=== PATIENT | male | born 1990 | race Caucasian/White ===

== ENCOUNTER 2017-04-24 21:44 | Emergency (ER) | payer MEDICARE, BC | END 2017-04-24 22:50 | disposition left against medical advice (07) | LOC: ER 21:44 | DX: Z53.9 Procedure and treatment not carried out, unspecified reason (principal); K08.89 Other specified disorders of teeth and supporting structures ==

== ENCOUNTER 2017-04-28 01:40 | Emergency (ER) | payer OTHER, MEDICARE, BC ==
--- NOTE | 2017-04-28 03:16 | ER Document Report ---
HPI - HPI Patient complains to provider of: Toothache Onset: Last week Onset/Duration: Gradual Quality of pain: Achy Pain Level: 4 Context: 26-year-old male complaining of toothache lower left third molar that is partially decayed. No facial swelling.. No fever Associated Symptoms: None Exacerbated by: Denies Relieved by: Denies Similar symptoms previously: Yes Recently seen / treated by doctor: No - ROS ROS below otherwise negative: Yes Systems Reviewed and Negative: Yes All other systems reviewed and negative - CARDIOVASCULAR Cardiovascular: DENIES: Chest pain - DERM Skin Color: Normal, [place] Past Medical History - General Information source: Patient - Social History Smoking Status: Current Every Day Smoker Chew tobacco use (# tins/day): No Frequency of alcohol use: None Drug Abuse: None Lives with: Family Family History: Reviewed & Not Pertinent Patient has suicidal ideation: No Patient has homicidal ideation: No Renal/ Medical History: Denies: Hx Peritoneal Dialysis Psychiatric Medical History: Reports: Hx Bipolar Disorder, Hx Schizophrenia - paranoid Past Surgical History: Reports: Hx Orthopedic Surgery - left hand, right hand with hardware - Immunizations Hx Diphtheria, Pertussis, Tetanus Vaccination: Yes Vertical Provider Document - CONSTITUTIONAL Agree With Documented VS: Yes Exam Limitations: No Limitations - INFECTION CONTROL TRAVEL OUTSIDE OF THE [place] IN LAST 30 DAYS: No - HEENT HEENT: Normocephalic Notes: decayed 3rd left lower molar, no abscess, gingivitis - NECK Neck: Supple - RESPIRATORY O2 Sat by Pulse Oximetry: 99 - MUSCULOSKELETAL/EXTREMETIES Musculoskeletal/Extremeties: MAEW, FROM - NEURO Level of Consciousness: Awake, Alert, Appropriate Motor/Sensory: No Motor Deficit, No Sensory Deficit - DERM Integumentary: Warm, Dry, No Rash Course - Vital Signs Vital signs: Temp Pulse Resp BP Pulse Ox 97.6 F 84 16 136/77 H 99 04/28/17 01:44 04/28/17 01:44 04/28/17 01:44 04/28/17 01:44 04/28/17 01:44 Discharge - Discharge Clinical Impression: Dental pain and decay lt lower 3rd molar Condition: Good Disposition: HOME, SELF-CARE Instructions: Clindamycin ([facility]), Toothache ([facility]), Dentist, Ultram ([facility]), Acetaminophen Additional Instructions: see dentist as soon as possible to er if worse Prescriptions: Clindamycin HCl [Cleocin 150 mg Capsule] 300 mg PO TID #42 capsule Tramadol HCl [Ultram 50 mg Tablet] 50 mg PO ASDIR PRN #20 tablet PRN Reason:
[2017-04-28] MEDS ORDERED: CLINDAMYCIN HCL 150 MG CAPSULE PO ONE (03:21)
[2017-04-28] MEDS ORDERED: ACETAMINOPHEN 325 MG TABLET PO ONE (03:22)
[2017-04-28] MEDS ORDERED: TRAMADOL HCL 50 MG TABLET PO ONE (03:22)
[2017-04-28 04:48] VITALS: BP 130/68
== END 2017-04-28 03:40 | disposition home or self-care (01) ==
LOC: ER 01:40
DX: K02.9 Dental caries, unspecified (principal); K05.10 Chronic gingivitis, plaque induced; K08.89 Other specified disorders of teeth and supporting structures; F17.200 Nicotine dependence, unspecified, uncomplicated
CPT/HCPCS: 99282; A9270 ×3

== ENCOUNTER 2018-02-10 02:00 | Emergency (ER) | payer BC, MEDICARE, OTHER ==
[2018-02-10 02:17] VITALS: BP 147/92
--- NOTE | 2018-02-10 02:35 | RADIOLOGY REPORT (SQ) ---
EXAM DESCRIPTION: SHOULDER RIGHT 2 OR MORE VIEWS CLINICAL HISTORY: Pain s/p injury COMPARISON: 03/18/2015 FINDINGS: 3 views of the right shoulder. The glenohumeral joint is not dislocated. There is separation of the acromioclavicular joint with superior displacement of the clavicular head relative to the acromion. However, this finding is unchanged relative to the comparison study. No fracture of the right-sided ribs. No right-sided pneumothorax. IMPRESSION: 1. No acute fracture or dislocation. 2. 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
--- NOTE | 2018-02-10 02:40 | ER Document Report ---
ED General - General Chief Complaint: R shoulder pain/ injury Stated Complaint: RT SHOULDER PAIN Time Seen by Provider: 02/10/18 02:27 Notes: She is a 27-year-old male who fell down walking his dog. Land to his right shoulder. Please pain his right shoulder feels like a popping sensation when he moves it. He denies any other injuries. He denies any neck pain. No head pain. No pain into his arm or wrist. No weakness or numbness into his right upper extremity. He does have a previous history of an AC separation in the right shoulder. TRAVEL OUTSIDE OF THE [place] IN LAST 30 DAYS: No - Related Data Allergies/Adverse Reactions: cephalexin [Cephalexin] Allergy (Intermediate, Verified 09/28/16 15:56) double vision ibuprofen [Ibuprofen] Adverse Reaction (Intermediate, Verified 09/28/16 15:56) stomach ulcers Past Medical History - Social History Smoking Status: Unknown if Ever Smoked Frequency of alcohol use: None Drug Abuse: None Family History: Reviewed & Not Pertinent Renal/ Medical History: Denies: Hx Peritoneal Dialysis Psychiatric Medical History: Reports: Hx Bipolar Disorder, Hx Schizophrenia - paranoid Past Surgical History: Reports: Hx Orthopedic Surgery - left hand, right hand with hardware - Immunizations Hx Diphtheria, Pertussis, Tetanus Vaccination: Yes Review of Systems - Review of Systems Notes: My Normal Review Basic REVIEW OF SYSTEMS: CONSTITUTIONAL : Denies fever, chills, or sweats. Denies recent illness. MUSCULOSKELETAL: Right shoulder pain NEUROLOGICAL: Denies sensory or motor loss. ALL OTHER SYSTEMS REVIEWED AND NEGATIVE. Physical Exam - Vital signs Vitals: Temp Pulse Resp BP Pulse Ox 98.2 F 107 H 16 147/92 H 98 02/10/18 02:13 02/10/18 02:13 02/10/18 02:13 02/10/18 02:13 02/10/18 02:13 - Notes Notes: General Appearance: Well nourished, alert, cooperative, no acute distress, no obvious discomfort. Vitals: reviewed, See vital signs table. Head: no swelling or tenderness to the head Eyes: PERRL, EOMI, Conjuctiva clear Mouth: No decreasd moisture Neck: Supple, no neck tenderness Extremities: strength 5/5 in all extremities, good pulses in all extremities, patient has a full range of motion of the right shoulder but does have some pain in doing so. He does have deformity due to his chronic AC separation. He has some pain with palpation over the lateral aspect of the humeral head. No obvious new deformity. Skin: warm, dry, appropriate color, no rash Neuro: speech clear, oriented x 3, normal affect, responds appropriately to questions. Course - Re-evaluation Re-evalutation: 02/10/18 02:46 Patient's x-ray does not show any new acute findings. No evidence of fracture. He has an AC separation that is very similar comparison to the one he had in 2015. Informed patient that he could have a strain right shoulder possible rotator cuff tear. I will give him a sling to wear. Encouraged him follow-up with orthopedist for reevaluation. I encouraged her return to ER if he has any worsening pain or if he has further concerns. Patient agrees with plan will be discharged home. Dictation of this chart was performed using voice recognition software; therefore, there may be some unintended grammatical errors. - Vital Signs Vital signs: Temp Pulse Resp BP Pulse Ox 98.2 F 107 H 16 147/92 H 98 02/10/18 02:13 02/10/18 02:13 02/10/18 02:13 02/10/18 02:13 02/10/18 02:13 Discharge - Discharge Clinical Impression: Right shoulder strain Qualifiers: Encounter type: initial encounter Qualified Code(s): S46.911A - Strain of unspecified muscle, fascia and tendon at shoulder and upper arm level, right arm , initial encounter AC separation Qualifiers: Encounter type: subsequent encounter Laterality: right Qualified Code(s): S43.101D - Unspecified dislocation of right acromioclavicular joint, subsequent encounter Condition: Good Disposition: HOME, SELF-CARE Instructions: Oral Narcotic Medication ([facility]) Additional Instructions: Please wear the sling for comfort and support. please follow up with the orthopedist, Dr. rabago, for reevaluation and further treatment. Please put your shoulder through range of motion several times a day to help prevent a frozen shoulder. Return to the ER if you have worsening pain or feel unwell. Referrals: DEYSI RAMIREZ MD [ACTIVE STAFF] - Follow up in 3-5 days
[2018-02-10] MEDS ORDERED: HYDROCODONE/ACETAMINOPHEN 5-325 MG (6 TAB/ER DISP) PO PRN (03:03)
== END 2018-02-10 03:05 | disposition home or self-care (01) ==
LOC: ER 02:00
DX: S46.911A Strain of unspecified muscle, fascia and tendon at shoulder and upper arm level, right arm, initial encounter (principal); S43.101A Unspecified dislocation of right acromioclavicular joint, initial encounter; W18.30XA Fall on same level, unspecified, initial encounter; Y93.K1 Activity, walking an animal; Z88.6 Allergy status to analgesic agent
CPT/HCPCS: 99283

== ENCOUNTER 2018-02-15 00:03 | Emergency (ER) | payer SELFPAY ==
[2018-02-15] MEDS ORDERED: LORAZEPAM INJ 2 MG/1 ML VIAL IM ONE (01:06)
[2018-02-15] MEDS ORDERED: HALOPERIDOL LACTATE INJ 5 MG/1 ML VIAL IM ONE (01:06)
[2018-02-15] MEDS ORDERED: DIPHENHYDRAMINE HCL 50 MG/ML VIAL IM ONE (01:11)
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
[2018-02-15 01:47] LABS: ABSOLUTE LYMPHOCYTES (AUTO) 2.1 10^3/uL (0.5-4.7); ABSOLUTE MONOCYTES (AUTO) 0.9 10^3/uL (0.1-1.4); ABSOLUTE NEUT (AUTO) 5.1 10^3/uL (1.7-8.2); BASOPHILS % (AUTO) 0.1 % (0-2); HEMOGLOBIN 15.9 g/dL (13.5-17.0); LYMPHOCYTES % (AUTO) 26.1 % (13-45); MEAN CORPUSCULAR HEMOGLOBIN 30.4 pg (27.0-33.4); MEAN CORPUSCULAR HGB CONC 34.5 g/dL (32.0-36.0); MEAN CORPUSCULAR VOLUME 88 fl (80-97); MONOCYTES % (AUTO) 10.6 % (3-13); PLATELET COUNT 224 10^3/uL (150-450); RED BLOOD COUNT 5.22 10^6/uL (4.35-5.55); RED CELL DISTRIBUTION WIDTH 13.4 % (11.5-14.0); SEGMENTED NEUTROPHILS % (AUTO) 63.2 % (42-78); TOTAL CELLS COUNTED % (AUTO) 100 %
[2018-02-15 02:20] LABS: ALANINE AMINOTRANSFERASE 42 U/L (21-72); ALBUMIN 4.8 g/dL (3.5-5.0); ALKALINE PHOSPHATASE 62 U/L (38-126); ANION GAP 12 (5-19); ASPARTATE AMINO TRANSFERASE 27 U/L (17-59); BILIRUBIN,DIRECT 0.4 mg/dL (0.0-0.4); BILIRUBIN,TOTAL 0.7 mg/dL (0.2-1.3); BLOOD UREA NITROGEN 13 mg/dL (7-20); CALCIUM 10.4 mg/dL (8.4-10.2); CARBON DIOXIDE 25 mmol/L (22-30); CHLORIDE 105 mmol/L (98-107); GLUCOSE 97 mg/dL (75-110); POTASSIUM 3.7 mmol/L (3.6-5.0); SODIUM 141.8 mmol/L (137-145); TOTAL PROTEIN 7.8 g/dL (6.3-8.2)
[2018-02-15 02:31] LABS: ACETAMINOPHEN < 10 ug/mL (10-30); ALCOHOL < 10 mg/dL (NONE DETECTED); SALICYLATE < 1.0 mg/dL (2.0-20.0)
--- NOTE | 2018-02-15 07:45 | EKG REPORT ---
SEVERITY:- NORMAL ECG - SINUS RHYTHM : Confirmed by: Ney Thompson MD 15-Feb-2018 07:44:38
[2018-02-15 08:27] LABS: APPEARANCE,URINE CLEAR; BILIRUBIN,URINE NEGATIVE (NEGATIVE); COLOR,URINE YELLOW; GLUCOSE, URINE NEGATIVE (NEGATIVE); KETONES,URINE TRACE mg/dL (NEGATIVE); LEUKOCYTE ESTERASE,URINE NEGATIVE (NEGATIVE); NITRITE,URINE NEGATIVE (NEGATIVE); PROTEIN,URINE NEGATIVE (NEGATIVE); URINE SPECIFIC GRAVITY 1.017; UROBILINOGEN,URINE NEGATIVE mg/dL (<2.0)
[2018-02-15 08:39] LABS: URINE BARBITURATES SCREEN NEGATIVE; URINE BENZODIAZEPINES SCREEN NEGATIVE; URINE COCAINE SCREEN NEGATIVE; URINE MARIJUANA (THC) SCREEN UNCONFIRMED POSITIVE; URINE METHADONE SCREEN NEGATIVE; URINE PHENCYCLIDINE SCREEN NEGATIVE
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
[2018-02-15 12:37] VITALS: BP 130/70
== END 2018-02-15 12:37 | disposition home or self-care (01) ==
LOC: ER 00:03
DX: F12.10 Cannabis abuse, uncomplicated (principal); F20.0 Paranoid schizophrenia; R45.850 Homicidal ideations; R45.1 Restlessness and agitation; R45.4 Irritability and anger; Z60.9 Problem related to social environment, unspecified; Z88.1 Allergy status to other antibiotic agents
CPT/HCPCS: 93005; 99285; 96372; 36415; 80307 ×4; 85025; 80053; 81001; 93010; J1200; J1630; J2060

== ENCOUNTER 2018-03-08 09:57 | Emergency (ER) | payer SELFPAY ==
--- NOTE | 2018-03-08 10:46 | RADIOLOGY REPORT (SQ) ---
EXAM DESCRIPTION: CHEST 2 VIEWS COMPLETED DATE/TIME: 03/08/2018 10:21 am REASON FOR STUDY: cough COMPARISON: Chest film 08/08/2013 EXAM PARAMETERS: NUMBER OF VIEWS: two views TECHNIQUE: Digital Frontal and Lateral radiographic views of the chest acquired. RADIATION DOSE: NA LIMITATIONS: none FINDINGS: LUNGS AND PLEURA: No opacities, masses or pneumothorax. No pleural effusion. MEDIASTINUM AND HILAR STRUCTURES: No masses or contour abnormalities. HEART AND VASCULAR STRUCTURES: Heart normal size. No evidence for failure. BONES: No acute findings. HARDWARE: None in the chest. OTHER: No other significant finding. IMPRESSION: NO ACUTE RADIOGRAPHIC FINDING IN THE CHEST. TECHNICAL DOCUMENTATION: JOB ID: [id number] [employer]- All Rights Reserved Reading location - IP/workstation name: [email or web address]
--- NOTE | 2018-03-08 11:10 | ER Document Report ---
ED Respiratory Problem - General Chief Complaint: Cough Stated Complaint: COUGH Time Seen by Provider: 03/08/18 10:26 Mode of Arrival: Ambulatory Information source: Patient Notes: 27-year-old male presents to ED for complaint of chest pain nonproductive cough. He does have congestion but no fevers. His pain is to the right and to the sternum. He denies any shortness of breath nausea or vomiting or any other symptoms. Patient is on Depakote and Cogentin for his psych history. TRAVEL OUTSIDE OF THE [place] IN LAST 30 DAYS: No - HPI Patient complains to provider of: Cough Onset: Other - 4 days Duration: Continuous Initiating Event: URI Quality of pain: Achy, Pressure Severity: Moderate Pain Level: 3 Context: Smoker Short of Breath: Mild Chest pain/discomfort: Tightness Cough: Nonproductive Sputum amount: None Associated symptoms: Chest pain/discomfort, Congestion, Cough, PND, Runny nose, Sinus pain/pressure. denies: Fever Similar symptoms previously: Yes Recently seen / treated by doctor: No - Related Data Allergies/Adverse Reactions: cephalexin [Cephalexin] Allergy (Intermediate, Verified 09/28/16 15:56) double vision ibuprofen [Ibuprofen] Adverse Reaction (Intermediate, Verified 09/28/16 15:56) stomach ulcers Past Medical History - General Information source: Patient - Social History Smoking Status: Current Every Day Smoker Cigarette use (# per day): Yes - Half pack per day Chew tobacco use (# tins/day): No Smoking Education Provided: Yes - 4 minutes Frequency of alcohol use: None Drug Abuse: None Occupation: House arrest Lives with: Family Family History: Reviewed & Not Pertinent Patient has suicidal ideation: No Patient has homicidal ideation: No - Past Medical History Cardiac Medical History: Reports: Hx Heart Murmur Pulmonary Medical History: Reports: None EENT Medical History: Reports: None Neurological Medical History: Reports: None Endocrine Medical History: Reports: None Renal/ Medical History: Reports: None Malignancy Medical History: Reports None GI Medical History: Reports: None Musculoskeltal Medical History: Reports Hx Musculoskeletal Deformity, Reports Hx Musculoskeletal Trauma Skin Medical History: Reports None Psychiatric Medical History: Reports: Hx Bipolar Disorder, Hx Schizophrenia - paranoid Traumatic Medical History: Reports: None Infectious Medical History: Reports: None Past Surgical History: Reports: Hx Orthopedic Surgery - left hand, right hand with hardware - Immunizations Hx Diphtheria, Pertussis, Tetanus Vaccination: Yes Review of Systems - Review of Systems Constitutional: Recent illness EENT: Nose congestion, Nose discharge, Sinus pressure, Sinus discharge Cardiovascular: Chest pain Respiratory: Cough Gastrointestinal: No symptoms reported Genitourinary: No symptoms reported Male Genitourinary: No symptoms reported Musculoskeletal: No symptoms reported Skin: No symptoms reported Hematologic/Lymphatic: No symptoms reported Neurological/Psychological: No symptoms reported -: Yes All other systems reviewed and negative Physical Exam - Vital signs Vitals: Temp Pulse Resp BP Pulse Ox 97.9 F 72 14 146/88 H 99 03/08/18 10:02 03/08/18 10:02 03/08/18 10:02 03/08/18 10:02 03/08/18 10:02 Interpretation: Normal - General General appearance: Appears well, Alert - HEENT Head: Normocephalic, Atraumatic Eyes: Normal Pupils: PERRL Sinus: Normal Nasal: Purulent discharge, Swelling Mouth/Lips: Normal Mucous membranes: Normal Pharynx: Post nasal drainage Neck: Normal - Respiratory Respiratory status: No respiratory distress Chest status: Tender, Pain with cough Breath sounds: Nonproductive cough Chest palpation: Normal - Cardiovascular Rhythm: Regular Heart sounds: Normal auscultation Murmur: No - Abdominal Inspection: Normal Distension: No distension Bowel sounds: Normal Tenderness: Nontender Organomegaly: No organomegaly - Back Back: Normal, Nontender - Extremities General upper extremity: Normal inspection, Nontender, Normal color, Normal ROM , Normal temperature General lower extremity: Normal inspection, Nontender, Normal color, Normal ROM , Normal temperature, Normal weight bearing. No: Beverly's sign - Neurological Neuro grossly intact: Yes Cognition: Normal Orientation: AAOx4 [place] Coma Scale Eye Opening: Spontaneous Mami Coma Scale Verbal: Oriented Mami Coma Scale Motor: Obeys Commands [place] Coma Scale Total: 15 Speech: Normal Motor strength normal: LUE, RUE, LLE, RLE Sensory: Normal - Psychological Associated symptoms: Normal affect, Normal mood - Skin Skin Temperature: Warm Skin Moisture: Dry Skin Color: Normal Course - Re-evaluation Re-evalutation: 03/08/18 21:49 After performing a Medical Screening Examination, I estimate there is LOW risk for ACUTE CORONARY SYNDROME, RESPIRATORY FAILURE, SEPSIS OR MENINGITIS, thus I consider the discharge disposition reasonable. I have reevaluated this patient multiple times and no significant life threatening changes are noted. The patient and I have discussed the diagnosis and risks, and we agree with discharging home with close follow-up. We also discussed returning to the Emergency Department immediately if new or worsening symptoms occur. We have discussed the symptoms which are most concerning (e.g., changing or worsening pain, trouble swallowing or breathing, neck stiffness, fever) that necessitate immediate return. - Vital Signs Vital signs: Temp Pulse Resp BP Pulse Ox 98.2 F 68 16 119/90 H 100 03/08/18 11:25 03/08/18 11:25 03/08/18 11:25 03/08/18 11:25 03/08/18 11:25 - Diagnostic Test Radiology reviewed: Image reviewed, Reports reviewed Discharge - Discharge Clinical Impression: Discomfort of chest wall URI (upper respiratory infection) Qualifiers: URI type: unspecified URI Qualified Code(s): J06.9 - Acute upper respiratory infection, unspecified HTN (hypertension) Qualifiers: Hypertension type: essential hypertension Qualified Code(s): I10 - Essential ( primary) hypertension Condition: Stable Disposition: HOME, SELF-CARE Instructions: Family Physicians / Practices Additional Instructions: UPPER RESPIRATORY ILLNESS: You have a viral infection of the respiratory passages -- a "cold." This common infection causes nasal congestion, drainage, and often sore throat and cough. It is highly contagious. The disease usually lasts about 10 to 14 days. There is no "cure" for the viral infection -- it must run its course. If there is a complication, such as bacterial infection in the nose, sinuses, middle ear, or bronchial tubes, antibiotics may be required. The antibiotics won't affect the virus. Drink plenty of fluids. A humidifier may help. An expectorant medication or decongestant may make you more comfortable. Use acetaminophen or ibuprofen for fever or aches. See the doctor if fever persists over two days, if there is any significant worsening of your symptoms, or if you simply fail to improve as expected. COUGH-SUPPRESSANT & EXPECTORANT MEDICATION: You are to use a cough medication as needed for relief of symptoms. This medicine is a combination of an expectorant (to make the mucous thinner and more easily "coughed up") and a cough suppressant (to reduce the frequency of coughing). The cough-suppressant medicine is related to narcotics. You may experience mild nausea and sleepiness. Some patients who are very sensitive to narcotics may have stomach pain from this medicine. Taking the medicine with food reduces these side effects. Do not drive or work with machinery until you know how this medicine affects you. The expectorant should have no side effects. Iodine-containing expectorants (such as organidin) should not be taken by persons with active thyroid disease unless approved by your doctor. Call the doctor if you develop shortness of breath, hives, rash, itching, lightheadedness, or severe nausea and vomiting. USE OF ACETAMINOPHEN (Tylenol): Acetaminophen may be taken for pain relief or fever control. It's much safer than aspirin, offering a wider range of "safe" dosages. It is safe during . Some brand names are Tylenol, Panadol, Datril, Anacin 3, Tempra, and Liquiprin. Acetaminophen can be repeated every four hours. The following are maximum recommended dosages: >89 pounds or adults 650 mg to 900 mg Acetaminophen can be repeated every four hours. Maximum dose not to exceed 4000 mg a day. SMOKING: If you smoke, you should stop smoking. The tar and chemicals in cigarette smoke are harmful. Smoking has been shown to cause: emphysema chronic bronchitis lung cancer mouth and throat cancer stomach and pancreas cancer premature aging defects In addition, smoking increases ear and lung infections in children of smokers. You will treated with Claritin 10 mg, Mucinex 600 mg, and Tylenol 650 mg for your cough and congestion. He can also use Flonase which is [id number] and salt and soda solution gargles. 1 quart of water 1 tablespoon of salt 1 teaspoon of baking soda Mixed 3 ingredients together and boil for 1 minute Placed in a covered quart jar Use 1/2 ounce of cold solution to gargle 3 times a day FOLLOW-UP CARE: If you have been referred to a physician for follow-up care, call the physician s office for an appointment as you were instructed or within the next two days. If you experience worsening or a significant change in your symptoms, notify the physician immediately or return to the Emergency Department at any time for re-evaluation. Forms: Elevated Blood Pressure
[2018-03-08] MEDS ORDERED: GUAIFENESIN 600 MG TABLET.SA PO ONE (11:11)
[2018-03-08] MEDS ORDERED: ACETAMINOPHEN 325 MG TABLET PO ONE (11:11)
[2018-03-08] MEDS ORDERED: LORATADINE 10 MG TABLET PO ONE (11:11)
[2018-03-08 11:28] VITALS: BP 119/90
--- NOTE | 2018-03-08 21:43 | EKG REPORT ---
SEVERITY:- BORDERLINE ECG - SINUS RHYTHM BORDERLINE RIGHT AXIS DEVIATION BORDERLINE Q WAVES IN INFERIOR LEADS INFERIOR Q WAVES, PROBABLY NORMAL VARIATION : Confirmed by: Raymon Viveros 08-Mar-2018 21:43:01
== END 2018-03-08 11:28 | disposition home or self-care (01) ==
LOC: ER 09:57
DX: J06.9 Acute upper respiratory infection, unspecified (principal); R07.89 Other chest pain; I10 Essential (primary) hypertension; R05 Cough; R09.81 Nasal congestion; R09.82 Postnasal drip; F17.210 Nicotine dependence, cigarettes, uncomplicated; Z79.899 Other long term (current) drug therapy
CPT/HCPCS: 71046; 93005; 93010; 99284; 99406

== ENCOUNTER 2018-03-14 19:16 | Emergency (ER) | payer SELFPAY ==
--- NOTE | 2018-03-14 19:53 | ER Document Report ---
ED Medical Screen (RME) - General Chief Complaint: Psych Problem Stated Complaint: PSYCH ISSUES Time Seen by Provider: 03/14/18 19:51 Notes: pt states he is having trouble with homicidal ideation and "hearing voices". TRAVEL OUTSIDE OF THE [place] IN LAST 30 DAYS: No - Related Data Allergies/Adverse Reactions: cephalexin [Cephalexin] Allergy (Intermediate, Verified 09/28/16 15:56) double vision ibuprofen [Ibuprofen] Adverse Reaction (Intermediate, Verified 09/28/16 15:56) stomach ulcers Past Medical History - Social History Chew tobacco use (# tins/day): No Frequency of alcohol use: None Drug Abuse: None - Past Medical History Cardiac Medical History: Reports: Hx Heart Murmur Renal/ Medical History: Denies: Hx Peritoneal Dialysis Musculoskeltal Medical History: Reports Hx Musculoskeletal Deformity, Reports Hx Musculoskeletal Trauma Psychiatric Medical History: Reports: Hx Bipolar Disorder, Hx Schizophrenia - paranoid Past Surgical History: Reports: Hx Orthopedic Surgery - left hand, right hand with hardware - Immunizations Hx Diphtheria, Pertussis, Tetanus Vaccination: Yes Physical Exam - Vital signs Vitals: Temp Pulse Resp BP Pulse Ox 97.8 F 66 18 141/88 H 98 03/14/18 19:25 03/14/18 19:25 03/14/18 19:25 03/14/18 19:25 03/14/18 19:25 Course - Vital Signs Vital signs: Temp Pulse Resp BP Pulse Ox 97.8 F 66 18 141/88 H 98 03/14/18 19:25 03/14/18 19:25 03/14/18 19:25 03/14/18 19:25 03/14/18 19:25
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
[2018-03-14 20:34] LABS: ABSOLUTE LYMPHOCYTES (AUTO) 2.3 10^3/uL (0.5-4.7); ABSOLUTE MONOCYTES (AUTO) 0.7 10^3/uL (0.1-1.4); ABSOLUTE NEUT (AUTO) 4.7 10^3/uL (1.7-8.2); BASOPHILS % (AUTO) 0.1 % (0-2); EOSINOPHILS % (AUTO) 0.1 % (0-6); HEMATOCRIT 43.4 % (37.9-51.0); LYMPHOCYTES % (AUTO) 29.8 % (13-45); MEAN CORPUSCULAR HEMOGLOBIN 30.5 pg (27.0-33.4); MEAN CORPUSCULAR HGB CONC 34.5 g/dL (32.0-36.0); MEAN CORPUSCULAR VOLUME 88 fl (80-97); MONOCYTES % (AUTO) 8.7 % (3-13); PLATELET COUNT 216 10^3/uL (150-450); RED BLOOD COUNT 4.92 10^6/uL (4.35-5.55); RED CELL DISTRIBUTION WIDTH 13.7 % (11.5-14.0); SEGMENTED NEUTROPHILS % (AUTO) 61.3 % (42-78); TOTAL CELLS COUNTED % (AUTO) 100 %; WHITE BLOOD COUNT 7.6 10^3/uL (4.0-10.5)
[2018-03-14 20:47] LABS: ALANINE AMINOTRANSFERASE 28 U/L (21-72); ALBUMIN 4.4 g/dL (3.5-5.0); ALKALINE PHOSPHATASE 57 U/L (38-126); ANION GAP 13 (5-19); ASPARTATE AMINO TRANSFERASE 24 U/L (17-59); BILIRUBIN,DIRECT 0.3 mg/dL (0.0-0.4); BILIRUBIN,TOTAL 0.5 mg/dL (0.2-1.3); BLOOD UREA NITROGEN 7 mg/dL (7-20); CALCIUM 9.7 mg/dL (8.4-10.2); CARBON DIOXIDE 25 mmol/L (22-30); CHLORIDE 105 mmol/L (98-107); GLUCOSE 92 mg/dL (75-110); SODIUM 142.7 mmol/L (137-145); TOTAL PROTEIN 7.2 g/dL (6.3-8.2)
[2018-03-14 20:48] LABS: ACETAMINOPHEN < 10 ug/mL (10-30); ALCOHOL < 10 mg/dL (NONE DETECTED); SALICYLATE < 1.0 mg/dL (2.0-20.0)
--- NOTE | 2018-03-15 07:54 | EKG REPORT ---
SEVERITY:- OTHERWISE NORMAL ECG - SINUS ARRHYTHMIA, RATE 47-70 : Confirmed by: Ney Thompson MD 15-Mar-2018 07:53:52
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
--- NOTE | 2018-03-15 10:45 | ER Document Report ---
Doctor's Note Notes: 03/15/18 10:43 Rounds: Chart reviewed and patient interviewed. Patient is here for evaluation of "hearing voices". He is not currently taking any of his psychiatric medications. He has previously been diagnosed as bipolar and schizophrenic. He says none of the medications ever work for him. Lab studies are all normal. Vital signs were normal with the exception of a blood pressure this morning of 92/55. He has no physiologic dysfunction as a result of this blood pressure recording. Imani Ulloa MD
[2018-03-15 10:49] VITALS: BP 97/57
== END 2018-03-15 11:29 | disposition home or self-care (01) ==
LOC: ER 19:16
DX: F20.0 Paranoid schizophrenia (principal); F31.9 Bipolar disorder, unspecified; R45.850 Homicidal ideations; F17.200 Nicotine dependence, unspecified, uncomplicated; Z55.9 Problems related to education and literacy, unspecified; Z65.3 Problems related to other legal circumstances; Z91.14 Patient's other noncompliance with medication regimen; Z88.1 Allergy status to other antibiotic agents; Z81.8 Family history of other mental and behavioral disorders
CPT/HCPCS: 36415; 80053; 80307; 85025; 93005; 93010; 99285

== ENCOUNTER 2018-07-01 05:07 | Emergency (ER) | payer BC, MEDICARE ==
--- NOTE | 2018-07-01 05:45 | ER Document Report ---
ED Medical Screen (RME) - General Chief Complaint: Overdose Stated Complaint: POSSIBLE OVERDOSE Time Seen by Provider: 07/01/18 05:45 TRAVEL OUTSIDE OF THE [place] IN LAST 30 DAYS: No - HPI Notes: 07/01/18 05:45 Patient states that all of his psychiatric medications in the attempt to harm himself tonight. Patient resting comfortably. - Related Data Allergies/Adverse Reactions: cephalexin [Cephalexin] Allergy (Intermediate, Verified 09/28/16 15:56) double vision ibuprofen [Ibuprofen] Adverse Reaction (Intermediate, Verified 09/28/16 15:56) stomach ulcers Past Medical History - Social History Chew tobacco use (# tins/day): No Drug Abuse: Prescription drugs - Past Medical History Cardiac Medical History: Reports: Hx Heart Murmur Renal/ Medical History: Denies: Hx Peritoneal Dialysis Musculoskeltal Medical History: Reports Hx Musculoskeletal Deformity, Reports Hx Musculoskeletal Trauma Psychiatric Medical History: Reports: Hx Bipolar Disorder, Hx Schizophrenia - paranoid Past Surgical History: Reports: Hx Orthopedic Surgery - left hand, right hand with hardware - Immunizations Hx Diphtheria, Pertussis, Tetanus Vaccination: Yes Review of Systems - Review of Systems Neurological/Psychological: Suicidal ideation Physical Exam - Vital signs Vitals: Temp Pulse Resp BP Pulse Ox 98.4 F 87 14 133/94 H 96 07/01/18 05:07 07/01/18 05:07 07/01/18 05:07 07/01/18 05:07 07/01/18 05:07 - General General appearance: Appears well In distress: None Course - Vital Signs Vital signs: Temp Pulse Resp BP Pulse Ox 98.4 F 87 14 133/94 H 96 07/01/18 05:07 07/01/18 05:07 07/01/18 05:07 07/01/18 05:07 07/01/18 05:07 - Laboratory Result Diagrams: 07/01/18 04:44 07/01/18 04:44
[2018-07-01 05:48] LABS: ABSOLUTE LYMPHOCYTES (AUTO) 2.1 10^3/uL (0.5-4.7); ABSOLUTE MONOCYTES (AUTO) 0.5 10^3/uL (0.1-1.4); ABSOLUTE NEUT (AUTO) 2.9 10^3/uL (1.7-8.2); EOSINOPHILS % (AUTO) 0.1 % (0-6); HEMATOCRIT 42.4 % (37.9-51.0); HEMOGLOBIN 14.8 g/dL (13.5-17.0); LYMPHOCYTES % (AUTO) 38.3 % (13-45); MEAN CORPUSCULAR HEMOGLOBIN 31.4 pg (27.0-33.4); MEAN CORPUSCULAR HGB CONC 34.9 g/dL (32.0-36.0); MEAN CORPUSCULAR VOLUME 90 fl (80-97); MONOCYTES % (AUTO) 9.4 % (3-13); PLATELET COUNT 197 10^3/uL (150-450); RED BLOOD COUNT 4.71 10^6/uL (4.35-5.55); RED CELL DISTRIBUTION WIDTH 14.1 % (11.5-14.0); SEGMENTED NEUTROPHILS % (AUTO) 52.2 % (42-78); TOTAL CELLS COUNTED % (AUTO) 100 %; WHITE BLOOD COUNT 5.5 10^3/uL (4.0-10.5)
[2018-07-01 05:58] LABS: ALANINE AMINOTRANSFERASE 24 U/L (21-72); ALBUMIN 4.4 g/dL (3.5-5.0); ALKALINE PHOSPHATASE 55 U/L (38-126); ANION GAP 14 (5-19); ASPARTATE AMINO TRANSFERASE 29 U/L (17-59); BILIRUBIN,DIRECT 0.2 mg/dL (0.0-0.4); BILIRUBIN,TOTAL 0.5 mg/dL (0.2-1.3); BLOOD UREA NITROGEN 10 mg/dL (7-20); CALCIUM 9.2 mg/dL (8.4-10.2); CARBON DIOXIDE 25 mmol/L (22-30); CHLORIDE 107 mmol/L (98-107); GLUCOSE 111 mg/dL (75-110); POTASSIUM 3.7 mmol/L (3.6-5.0); TOTAL PROTEIN 7.3 g/dL (6.3-8.2)
[2018-07-01 06:04] LABS: ACETAMINOPHEN < 10 ug/mL (10-30); ALCOHOL < 10 mg/dL (NONE DETECTED); SALICYLATE < 1.0 mg/dL (2.0-20.0)
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
[2018-07-01] MEDS ORDERED: DIVALPROEX SODIUM 250 MG TABLET.DR PO ONE (06:38)
--- NOTE | 2018-07-01 09:58 | EKG REPORT ---
SEVERITY:- NORMAL ECG - SINUS RHYTHM : Confirmed by: Melanie Aguilera MD 01-Jul-2018 09:57:57
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
[2018-07-01 15:02] LABS: APPEARANCE,URINE CLEAR; BILIRUBIN,URINE NEGATIVE (NEGATIVE); COLOR,URINE YELLOW; GLUCOSE, URINE NEGATIVE (NEGATIVE); KETONES,URINE NEGATIVE (NEGATIVE); LEUKOCYTE ESTERASE,URINE NEGATIVE (NEGATIVE); NITRITE,URINE NEGATIVE (NEGATIVE); PROTEIN,URINE NEGATIVE (NEGATIVE); URINE SPECIFIC GRAVITY 1.006; UROBILINOGEN,URINE NEGATIVE mg/dL (<2.0)
[2018-07-01 15:33] VITALS: BP 125/58
[2018-07-01 15:44] LABS: URINE AMPHETAMINES SCREEN NEGATIVE; URINE BARBITURATES SCREEN NEGATIVE; URINE BENZODIAZEPINES SCREEN NEGATIVE; URINE COCAINE SCREEN UNCONFIRMED POSITIVE; URINE MARIJUANA (THC) SCREEN NEGATIVE; URINE METHADONE SCREEN NEGATIVE; URINE PHENCYCLIDINE SCREEN NEGATIVE
== END 2018-07-01 15:33 | disposition home or self-care (01) ==
LOC: ER 05:07
DX: F32.9 Major depressive disorder, single episode, unspecified (principal); R45.851 Suicidal ideations; R45.850 Homicidal ideations; F17.210 Nicotine dependence, cigarettes, uncomplicated; Z88.1 Allergy status to other antibiotic agents
CPT/HCPCS: 36415; 80053; 80164; 80307; 81001; 85025; 93005; 93010; 99285

== ENCOUNTER 2018-07-11 02:15 | Emergency (ER) | payer SELFPAY ==
[2018-07-11 03:04] LABS: ABSOLUTE LYMPHOCYTES (AUTO) 2.1 10^3/uL (0.5-4.7); ABSOLUTE MONOCYTES (AUTO) 0.6 10^3/uL (0.1-1.4); ABSOLUTE NEUT (AUTO) 5.9 10^3/uL (1.7-8.2); BASOPHILS % (AUTO) 0.3 % (0-2); HEMATOCRIT 38.5 % (37.9-51.0); HEMOGLOBIN 13.7 g/dL (13.5-17.0); LYMPHOCYTES % (AUTO) 23.8 % (13-45); MEAN CORPUSCULAR HEMOGLOBIN 32.4 pg (27.0-33.4); MEAN CORPUSCULAR HGB CONC 35.6 g/dL (32.0-36.0); MEAN CORPUSCULAR VOLUME 91 fl (80-97); MONOCYTES % (AUTO) 7.1 % (3-13); PLATELET COUNT 203 10^3/uL (150-450); RED BLOOD COUNT 4.24 10^6/uL (4.35-5.55); RED CELL DISTRIBUTION WIDTH 14.4 % (11.5-14.0); SEGMENTED NEUTROPHILS % (AUTO) 68.8 % (42-78); TOTAL CELLS COUNTED % (AUTO) 100 %; WHITE BLOOD COUNT 8.6 10^3/uL (4.0-10.5)
[2018-07-11 03:13] LABS: ALANINE AMINOTRANSFERASE 22 U/L (21-72); ALKALINE PHOSPHATASE 52 U/L (38-126); ANION GAP 11 (5-19); ASPARTATE AMINO TRANSFERASE 35 U/L (17-59); BILIRUBIN,DIRECT 0.3 mg/dL (0.0-0.4); BILIRUBIN,TOTAL 0.4 mg/dL (0.2-1.3); BLOOD UREA NITROGEN 15 mg/dL (7-20); CALCIUM 8.8 mg/dL (8.4-10.2); CARBON DIOXIDE 23 mmol/L (22-30); CHLORIDE 110 mmol/L (98-107); GLUCOSE 92 mg/dL (75-110); POTASSIUM 3.9 mmol/L (3.6-5.0); SODIUM 144.1 mmol/L (137-145); TOTAL PROTEIN 6.7 g/dL (6.3-8.2)
[2018-07-11 03:17] LABS: ACETAMINOPHEN < 10 ug/mL (10-30); ALCOHOL < 10 mg/dL (NONE DETECTED); SALICYLATE < 1.0 mg/dL (2.0-20.0)
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
--- NOTE | 2018-07-11 07:45 | EKG REPORT ---
SEVERITY:- NORMAL ECG - SINUS RHYTHM : Confirmed by: Raymon Viveros 11-Jul-2018 07:44:38
[2018-07-11 10:22] VITALS: BP 112/72
[2018-07-11] MEDS ORDERED: OLANZAPINE 5 MG TABLET PO ONE (10:22)
[2018-07-11] MEDS ORDERED: DIVALPROEX SODIUM 500 MG TAB.SR.24H PO ONE (10:22)
[2018-07-11] MEDS ORDERED: BENZTROPINE MESYLATE 1 MG TABLET PO ONE (10:23)
--- NOTE | 2018-07-11 10:34 | ER Document Report ---
Doctor's Note Notes: 07/11/18 10:34 This 27 oh man presented for evaluation of "mental health shed" he has been followed closely in the outpatient setting, current plan will be for this patient to undergo treatment with a dose of Depakote as well as Zyprexa and Cogentin here. He will follow-up in [facility] this week. He has been seen and evaluated by her mental health team who believes that is appropriate for discharge home. WIll plan for DC with return precuations Discharge - Discharge Clinical Impression: Mental health problem Condition: Stable Disposition: HOME, SELF-CARE Additional Instructions: You have been evaluated by both medical and behavioral health teams and if deemed appropriate for discharge. You are recommended to continue to continue working with [facility] in addition to [facility] for your continued outpatient mental health treatment. You also have been provided a local resource list if you choose to change your provider. You have been provided prescriptions for Zyprexa 5 mg twice daily, Depakote 500 mg twice daily and Cogentin 1 mg daily please take as directed. DEPRESSION: Your evaluation reveals that you have mental depression. While symptoms may be vague, they often include disturbance of sleep, fatigue, loss of appetite , and general loss of interest in life. While depression may be a side effect of drugs, or a reaction to a major change in your life, many cases have no known cause. If depression is acute, and related to a major loss in your life, you can expect it to clear completely with time. If you have been depressed a long time , are prone to repeated bouts of depression or low mood, or have been thinking of suicide, get help. Depression can be treated with anti-depressant medication and counselling. Long-term depression will often take a few weeks to clear, even with appropriate medication. Follow-up care is important. SUICIDAL IDEATION: Suicidal ideation is a common medical term for thoughts about suicide, which may be as detailed as a formulated plan, without the suicidal act itself. Although most people who undergo suicidal ideation do not commit suicide, some go on to make suicide attempts. The range of suicidal ideation varies greatly from fleeting to detailed planning, role playing, and unsuccessful attempts. While thoughts about suicide are common, most people do not carry out serious actions to commit suicide. Based upon your evaluation and discussion with you, we do not believe you are currently at risk to act upon your thoughts of suicide. You have agreed to return to the Emergency Department, at any time , if you feel inclined to act upon your suicidal thoughts. FOLLOW-UP CARE: If you experience worsening or a significant change in your symptoms, notify the physician immediately or return to the Emergency Department at any time for re-evaluation. Prescriptions: Benztropine Mesylate [Cogentin 1 mg Tablet] 1 mg PO DAILY #7 tablet Divalproex Sodium [Depakote] 500 mg PO BID #14 tablet. Olanzapine [Zyprexa 5 mg Tablet] 5 mg PO Q12 #14 tablet Referrals: [facility] [Other] - Follow up as needed [facility] [Outside] - Follow up as needed
== END 2018-07-11 11:12 | disposition home or self-care (01) ==
LOC: ER 02:15
DX: R45.851 Suicidal ideations (principal); R45.850 Homicidal ideations; S60.511A Abrasion of right hand, initial encounter; M79.641 Pain in right hand; Z88.1 Allergy status to other antibiotic agents; Z63.0 Problems in relationship with spouse or partner; Z91.14 Patient's other noncompliance with medication regimen; F17.200 Nicotine dependence, unspecified, uncomplicated; W22.8XXA Striking against or struck by other objects, initial encounter
CPT/HCPCS: 36415; 80053; 80307; 85025; 93005; 93010; 99285

== ENCOUNTER 2018-08-09 04:20 | Emergency (ER) | payer SELFPAY ==
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
[2018-08-09 05:54] LABS: APPEARANCE,URINE CLEAR; BILIRUBIN,URINE NEGATIVE (NEGATIVE); COLOR,URINE YELLOW; GLUCOSE, URINE NEGATIVE (NEGATIVE)
[2018-08-09 05:55] LABS: KETONES,URINE NEGATIVE (NEGATIVE); LEUKOCYTE ESTERASE,URINE NEGATIVE (NEGATIVE); NITRITE,URINE NEGATIVE (NEGATIVE); PROTEIN,URINE NEGATIVE (NEGATIVE); URINE SPECIFIC GRAVITY 1.025
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
[2018-08-09] MEDS ORDERED: DIPH/PERTUSS(ACELL)/TETANUS VAC/PF 0.5 ML SYR (>=10YO) IM ONE (07:46)
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
[2018-08-09 09:54] VITALS: BP 128/74
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
== END 2018-08-09 09:54 | disposition home or self-care (01) ==
LOC: ER 04:20
PROC: 3E0234Z Introduction of Serum, Toxoid and Vaccine into Muscle, Percutaneous Approach (ICD-10-PCS; principal; 2018-08-09)
DX: R10.2 Pelvic and perineal pain (principal); S80.811A Abrasion, right lower leg, initial encounter; V29.88XA Motorcycle rider (driver) (passenger) injured in other specified transport accidents, initial encounter; Y92.410 Unspecified street and highway as the place of occurrence of the external cause; R51 Headache; N43.3 Hydrocele, unspecified; Z23 Encounter for immunization
CPT/HCPCS: 72170; 74177; 76870; 81001; 90471; 90715; 93976; 99285

== ENCOUNTER 2018-08-25 22:33 | Emergency (ER) | payer SELFPAY ==
[2018-08-25 22:44] VITALS: BP 135/80
== END 2018-08-26 00:58 | disposition left against medical advice (07) ==
LOC: ER 22:33
DX: Z53.21 Procedure and treatment not carried out due to patient leaving prior to being seen by health care provider (principal)

== ENCOUNTER 2019-06-25 13:07 | Emergency (ER) | payer SELFPAY ==
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
[2019-06-25 14:59] VITALS: BP 137/87
== END 2019-06-25 15:00 | disposition home or self-care (01) ==
LOC: ER 13:07
DX: M79.605 Pain in left leg (principal)
CPT/HCPCS: 99283

== ENCOUNTER 2019-06-27 01:57 | Emergency (ER) | payer SELFPAY ==
--- NOTE | 2019-06-27 02:46 | ER Document Report ---
ED Psych Disorder / Suicide <BRIDGETBRUNO M - Last Filed: 06/27/19 18:08> - General TRAVEL OUTSIDE OF THE [place] IN LAST 30 DAYS: No <RHINA LR - Last Filed: 06/27/19 20:03> - General Chief Complaint: Possible Overdose Stated Complaint: PSYCH PROBLEM Time Seen by Provider: 06/27/19 02:37 Notes: Patient is a 28-year-old male that comes to the emergency department for chief complaint of medication overdose. He states he has been really depressed because his dad just , he states he took it to kill himself. He states he has attempted to kill himself in the past several times including trying to hang himself. He lives at home with his mother who brought him here. Patient takes Valproic acid 250mg, Olanzapine 20mg, Buspirone 15mg, Bentropine 1mg. He does not know the doses that he took of each. He denies any symptoms earlier today, he denies any current symptoms, he denies homicidal ideations. He tells me he is diagnosed with paranoid schizophrenia and bipolar disorder. He denies alcohol or recreational drugs. (RHINA LR) - Related Data Allergies/Adverse Reactions: cephalexin [Cephalexin] Allergy (Intermediate, Verified 06/25/19 13:08) double vision ibuprofen [Ibuprofen] Adverse Reaction (Intermediate, Verified 06/25/19 13:08) stomach ulcers Past Medical History - General Information source: Patient - Social History Smoking Status: Unknown if Ever Smoked Frequency of alcohol use: None Lives with: Parents Family History: Reviewed & Not Pertinent - Past Medical History Cardiac Medical History: Reports: Hx Heart Murmur Renal/ Medical History: Denies: Hx Peritoneal Dialysis Musculoskeletal Medical History: Reports Hx Musculoskeletal Deformity, Reports Hx Musculoskeletal Trauma Psychiatric Medical History: Reports: Hx Attention Deficit Hyperactivity Disorder, Hx Bipolar Disorder, Hx Schizophrenia - paranoid Past Surgical History: Reports: Hx Orthopedic Surgery - left hand, right hand with hardware - Immunizations Hx Diphtheria, Pertussis, Tetanus Vaccination: Yes <RHINA LR - Last Filed: 06/27/19 20:03> Review of Systems - Review of Systems Constitutional: No symptoms reported EENT: No symptoms reported Cardiovascular: No symptoms reported Respiratory: No symptoms reported Gastrointestinal: No symptoms reported Genitourinary: No symptoms reported Male Genitourinary: No symptoms reported Musculoskeletal: No symptoms reported Skin: No symptoms reported Hematologic/Lymphatic: No symptoms reported Neurological/Psychological: See HPI <RHINA LR - Last Filed: 06/27/19 20:03> Physical Exam <RHINA LR - Last Filed: 06/27/19 20:03> - Vital signs Vitals: Temp Pulse Resp BP Pulse Ox 97.4 F 96 20 154/76 H 100 06/27/19 02:12 06/27/19 02:12 06/27/19 02:12 06/27/19 02:12 06/27/19 02:12 - Notes Notes: GENERAL: Alert, restless, does not appear to be in distress HEAD: Normocephalic, atraumatic. EYES: Pupils equal, round, and reactive to light. Extraocular movements intact. ENT: Oral mucosa moist, tongue midline. Oropharynx unremarkable. Airway patent. Nares patent, no nasal septal hematoma, TM's intact. NECK: Full range of motion. Supple. Trachea midline. LUNGS: Clear to auscultation bilaterally, no wheezes, rales, or rhonchi. No respiratory distress. HEART: Regular rate and rhythm. No murmur ABDOMEN: Soft, non-tender. Non-distended. Bowel sounds present in all 4 quadrants. GENITOURINARY: Deferred EXTREMITIES: Moves all 4 extremities spontaneously. No edema, normal radial and dorsalis pedis pulses bilaterally. No cyanosis. BACK: no cervical, thoracic, lumbar midline tenderness. No saddle anesthesia, normal distal neurovascular exam. Moves all extremities in full range of motion. NEUROLOGICAL: Alert and oriented x3. Normal speech. Cranial nerves II through XII grossly intact. PSYCH: Patient makes good eye contact, initially he was cooperative and soft-sp oken, however becomes easily agitated and is mildly restless SKIN: Warm, dry, normal turgor. No rashes or lesions noted. (RHINA LR) Course - Laboratory Result Diagrams: 06/27/19 02:50 06/27/19 02:50 <BRUNO GILL - Last Filed: 06/27/19 18:08> - Laboratory Result Diagrams: 06/27/19 02:50 06/27/19 02:50 <RHINA LR - Last Filed: 06/27/19 20:03> - Re-evaluation Re-evalutation: 06/27/19 8:25 Assumed care of patient from DEQUAN Huynh. Rounded on patient he is resting quietly. Plan is to repeat valproic acid level at 9 AM and see how it is trending. If it is upgoing will speak with poison control again and decide on need for anecdote. If it is trending down then he can be medically cleared. He already has IVC papers on him. We will continue to monitor closely. 06/27/19 10:40 Noted most recent valproic acid level. Spoke with poison control, Kristi, and she would like to have the valproic acid repeated in 6 hours. We will continue to monitor the patient as he is not medically cleared. He is supposed to get an ammonia level if his neurological status changes. He has been resting quietly in his room. He got up and ate breakfast and he is doing well currently. Updated are crisis workers as well. 06/27/19 16:40 Rounded on patient and he continues to do well. He is resting and awakens with light touch and voice. I have updated him on the plan. He is aware and agrees. Acid which is trending down which is very reassuring. I did obtain an ammonia level to be complete and it is also within normal limits. Spoke with poison control about the valproic acid and they agree that he is safe to be medically cleared. Updated our crisis workers about patient and they are aware. His IVC is good for 24 hours and they will begin placement for the patient tomorrow morning. 06/27/19 18:08 Spoke with Crisis workers again -- they will stop patient's depakote and have patient start Zyprex 2.5 mg BID. Have placed a standing order for such. (BRUNO GILL) 06/27/19 02:45 Spoke with poison controlPaige, recommendation is specifically to check potassium and magnesium and optimize these levels, perform valproic acid check and recheck at 2 hours, perform 4-hour acetaminophen check after initial, and then if patient has no signs of toxicity (drowsiness, tachycardia, extraparametal symptoms, QTC prolongation) he can be cleared in 6 hours. 06/27/19 03:05 Patient was not compliant with getting on the monitor, testing, getting into account. He states he refuses. I went into the room again, explained the importance of this and that we do not have a choice, we needed to proceed and medically clear him to make sure he was okay. He states that he was in agreement with this plan and he started getting into the gown. Patient ran from the facility after I walked out, he was escorted back in by police, IVC paperwork was completed beforehand because of patient's suicidal ideations and suicide attempt. When I discussed with patient again, initially he was irritable, afterwards instead of being restrained and or medicated he agreed to monitoring and work-up. After this he became, and then fell asleep. He did not need to be medicated. EKG shows sinus rhythm at a rate of 86, QTC of 431, no T wave inversions or ST segment changes in consecutive leads. Normal axis. CBC unremarkable. Chemistry including magnesium unremarkable except for only borderline creatinine at 1.29. Patient was given p.o. fluids. Valproic acid is not elevated, in fact it is slightly low. This will be repeated and trended. Acetaminophen is unremarkable, drug screen pending. Alcohol negative. Patient is not tachycardic or heavily sedated. Repeat valproic acid is significantly changed now at 96.6. This will be trended again with the acetaminophen at 7 AM. 06/27/19 07:50 Depakote level continues to climb, however patient remains arousable, converses normally without significant change, has had no EPS noted, and he is not tachycardic. I did call and speak with poison control again, they recommend IV fluids, additional recheck of Depakote, if it continues to increase then we will check an ammonia and consider l-carnitine antidote (call poison control back if Depakote continues to rise). 06/27/19 08:10 Handoff given and full report given to Breana Gill PA-C pending additional working and hopefully medical clearance. (RHINA LR) - Vital Signs Vital signs: Temp Pulse Resp BP Pulse Ox 97.8 F 88 16 116/58 L 100 06/27/19 16:44 06/27/19 16:44 06/27/19 16:44 06/27/19 16:44 06/27/19 16:44 - Laboratory Laboratory results interpreted by me: 06/27/19 06/27/19 06/27/19 02:50 06:35 18:21 BUN 24 H Creatinine 1.29 H Urine Urobilinogen 4.0 H Salicylates < 1.0 L Acetaminophen < 10 L < 10 L Valproic Acid 23.7 L - EKG Interpretation by Me Additional EKG results interpreted by me: EKG shows sinus rhythm at a rate of 86, QTC of 431, no T wave inversions or ST segment changes in consecutive leads. Normal axis. (RHINA LR) Discharge <BRUNO GILL - Last Filed: 06/27/19 18:08> <RHINA LR - Last Filed: 06/27/19 20:03> - Discharge Clinical Impression: Intentional overdose of drug in tablet form, Suicidal ideations Condition: Stable Disposition: PSYCH HOSP/UNIT
[2019-06-27 03:04] LABS: ABSOLUTE LYMPHOCYTES (AUTO) 1.7 10^3/uL (0.5-4.7); ABSOLUTE MONOCYTES (AUTO) 0.5 10^3/uL (0.1-1.4); ABSOLUTE NEUT (AUTO) 3.4 10^3/uL (1.7-8.2); BASOPHILS % (AUTO) 0.2 % (0-2); EOSINOPHILS % (AUTO) 0.1 % (0-6); HEMATOCRIT 42.8 % (37.9-51.0); LYMPHOCYTES % (AUTO) 29.5 % (13-45); MEAN CORPUSCULAR HEMOGLOBIN 31.1 pg (27.0-33.4); MEAN CORPUSCULAR VOLUME 89 fl (80-97); MONOCYTES % (AUTO) 9.6 % (3-13); PLATELET COUNT 205 10^3/uL (150-450); SEGMENTED NEUTROPHILS % (AUTO) 60.6 % (42-78); TOTAL CELLS COUNTED % (AUTO) 100 %; WHITE BLOOD COUNT 5.7 10^3/uL (4.0-10.5)
[2019-06-27 03:19] LABS: ALBUMIN 4.3 g/dL (3.5-5.0); ALKALINE PHOSPHATASE 48 U/L (38-126); ANION GAP 10 (5-19); ASPARTATE AMINO TRANSFERASE 53 U/L (17-59); BILIRUBIN,DIRECT 0.3 mg/dL (0.0-0.4); BILIRUBIN,TOTAL 1.1 mg/dL (0.2-1.3); BLOOD UREA NITROGEN 24 mg/dL (7-20); CALCIUM 9.8 mg/dL (8.4-10.2); CARBON DIOXIDE 29 mmol/L (22-30); CHLORIDE 102 mmol/L (98-107); GLUCOSE 98 mg/dL (75-110); POTASSIUM 3.6 mmol/L (3.6-5.0)
[2019-06-27] MEDS ORDERED: DIPHENHYDRAMINE HCL 50 MG/ML VIAL IM ONE (03:26)
[2019-06-27] MEDS ORDERED: LORAZEPAM INJ 2 MG/1 ML VIAL IM ONE (03:26)
[2019-06-27] MEDS ORDERED: DIPHENHYDRAMINE HCL 50 MG/ML VIAL ONE (03:27)
[2019-06-27 03:30] LABS: ACETAMINOPHEN < 10 ug/mL (10-30); ALCOHOL < 10 mg/dL (NONE DETECTED); SALICYLATE < 1.0 mg/dL (2.0-20.0)
--- NOTE | 2019-06-27 07:41 | EKG REPORT ---
SEVERITY:- NORMAL ECG - SINUS RHYTHM : Confirmed by: Ney Thompson MD 27-Jun-2019 07:41:11
[2019-06-27] MEDS ORDERED: NORMAL SALINE 1000 ML 1,000 ML IV ONE (07:52)
--- NOTE | 2019-06-27 10:33 | PSYCHOLOGICAL NOTE ---
Psych Note - Psych Note Date seen by psych provider: 06/27/19 Time seen by psych provider: 07:38 - Chart review at 0738. Evaluation from 0817- 819. Psych Note: Presenting Problem: 24 Hour IVC Petition, SI with OD attempt of a reported couple handfuls of prescribed medications (Depakote 250MG, Zyprexa 20MG, Buspar 15MG and Cogentin 1MG), he reported increased stress and his father passing away recently. Depakote level was 23.7 L at 0250, 96.6 at 0500, 116.3 at 0635 and 116.5 at 0920. The upward trending suggests he did take more medication than is prescribed. He was asleep at onset of evaluation. He was quickly agitated and irritable as evidenced by loud and staccato tone and comment "it's documented in my records read it." With further questioning he stated "if you want me to talk you need to get me a drink." Attending nurse noted food tray was removed because he broke the monitor. Patient has been seen by [facility] multiple times since 2014, with the last time being 07/11/18 after getting out of intermediate, trying to get medications and go inpatient, he reported AH command telling him to hurt himself and others, was prescribed Depakote 500MG BID/Zyprexa 5MG BID/Cogentin 1MG QD, and he was linked to [facility] who connected him with [facility] and obtained a bicycle for him to utilize for transportation. Diagnosis: SI attempt via OD Uncomplicated Bereavement Impression/Plan: Currently waiting on medical clearance which will be based on Depakote level increasing or decreasing. Since the Depakote Level at 0920 still increased even minimally patient is not medically cleared and a repeat level needs to be drawn in 6 hours per attending ED Physician per poison control.
[2019-06-27] MEDS: OLANZAPINE 2.5 MG TABLET PO SCH (18:41)
[2019-06-27 19:00] LABS: APPEARANCE,URINE CLEAR; BILIRUBIN,URINE NEGATIVE (NEGATIVE); COLOR,URINE YELLOW; GLUCOSE, URINE NEGATIVE (NEGATIVE); KETONES,URINE NEGATIVE (NEGATIVE); LEUKOCYTE ESTERASE,URINE NEGATIVE (NEGATIVE); NITRITE,URINE NEGATIVE (NEGATIVE); PROTEIN,URINE NEGATIVE (NEGATIVE); URINE SPECIFIC GRAVITY 1.012
[2019-06-27 19:12] LABS: URINE BARBITURATES SCREEN NEGATIVE; URINE BENZODIAZEPINES SCREEN NEGATIVE; URINE PHENCYCLIDINE SCREEN NEGATIVE
[2019-06-27 19:13] LABS: URINE METHADONE SCREEN NEGATIVE
[2019-06-27 19:22] LABS: URINE COCAINE SCREEN UNCONFIRMED POSITIVE
[2019-06-27 19:23] LABS: URINE MARIJUANA (THC) SCREEN UNCONFIRMED POSITIVE
[2019-06-28] MEDS: OLANZAPINE 2.5 MG TABLET PO SCH (09:13)
--- NOTE | 2019-06-28 10:54 | ER Document Report ---
Doctor's Note Notes: 06/28/19 10:52 Rounds: Chart reviewed and patient interviewed. Patient is depressed and suicidal. He was in [facility] about a year and got out a week ago and his father was found and he is depressed about the loss of his father. Vital signs are all normal. Labs were positive for many drugs, including opiates, sarah arabella, marijuana,. Lab studies showed a creatinine of 1.29 and a BUN of 24. Vital signs are all normal. Patient appears to be medically stable for transfer or discharge. Derrick Ulloa MD
[2019-06-28 12:09] VITALS: BP 144/79
== END 2019-06-28 12:45 ==
LOC: ER 01:57
DX: T42.6X2A Poisoning by other antiepileptic and sedative-hypnotic drugs, intentional self-harm, initial encounter (principal); T43.592A Poisoning by other antipsychotics and neuroleptics, intentional self-harm, initial encounter; T65.92XA Toxic effect of unspecified substance, intentional self-harm, initial encounter; F20.0 Paranoid schizophrenia; F31.9 Bipolar disorder, unspecified; Z79.899 Other long term (current) drug therapy; Z88.1 Allergy status to other antibiotic agents; Z63.4 Disappearance and death of family member
CPT/HCPCS: 93005; 99285; 36415; 80307 ×4; 82140; 83735; 85025; 80053; 81001; 80164; 93010; J3490 ×2; J7030

== ENCOUNTER 2019-07-08 21:14 | Emergency (ER) | payer SELFPAY ==
[2019-07-08 21:20] VITALS: BP 140/81
--- NOTE | 2019-07-08 21:45 | RADIOLOGY REPORT (SQ) ---
EXAM DESCRIPTION: XR ANKLE 2 VIEWS COMPLETED DATE/TME: 07/08/2019 00:00 CLINICAL HISTORY: 28 years, Male, bone pain COMPARISON: None. NUMBER OF VIEWS: Two TECHNIQUE: Frontal and lateral radiographs of the left ankle were obtained LIMITATIONS: None. FINDINGS: Visualized osseous structures are normal in appearance. Joint spaces are well-maintained. No acute fracture or dislocation is evident. IMPRESSION: No definite acute osseous anomaly. copyright 2010 [employer]- All Rights Reserved
--- NOTE | 2019-07-08 21:52 | ER Document Report ---
HPI - HPI Patient complains to provider of: left ankle pain Time Seen by Provider: 07/08/19 21:52 Onset: Just prior to arrival Onset/Duration: Sudden, Persistent Quality of pain: Achy, Throbbing Severity: Mild Pain Level: 2 Similar symptoms previously: No Recently seen / treated by doctor: No Notes: This is a 28 yr old male pt with the listed pmh that presents with left ankle pain. Patient states that this occurred while he was walking and stepped in a hole and twisted it ship captain. Patient denies any numbness, tingling, or weakness. Patient denies any pain in the knee or the hip. Patient states because of the continued pain that is described as an 4/10, sharp pain, and without radiation he came in for evaluation. he took an aleve ship captain and doesn't want anything for pain here. Walking and palpation make pain worse and rest makes the pain better. Patient was worried that it is broken or fractured and is requesting imaging. no preceding injury sx. Patient is able to bear any weight on the ankle but has pain. Patient denies any other injuries or complaints. no surgeries on the area. no intoxication. no pain anywhere else. hasn't sought care until now. - ROS Systems Reviewed and Negative: Yes All other systems reviewed and negative - to include 10 systems, unless mentioned in the hpi Past Medical History - General Information source: Patient - Social History Smoking Status: Current Some Day Smoker Frequency of alcohol use: None Drug Abuse: None Family History: Reviewed & Not Pertinent Patient has suicidal ideation: No Patient has homicidal ideation: No Endocrine Medical History: Reports: None Renal/ Medical History: Denies: Hx Peritoneal Dialysis Musculoskeletal Medical History: Reports Hx Musculoskeletal Deformity, Reports Hx Musculoskeletal Trauma Psychiatric Medical History: Reports: Hx Attention Deficit Hyperactivity Disorder, Hx Bipolar Disorder, Hx Schizophrenia - paranoid Past Surgical History: Reports: Hx Orthopedic Surgery - left hand, right hand with hardware - Immunizations Immunizations up to date: Yes Hx Diphtheria, Pertussis, Tetanus Vaccination: Yes Vertical Provider Document - CONSTITUTIONAL Notes: GENERAL_APPEARANCE: well_nourished, alert, cooperative, no_acute_distress, no_obvious_discomfort. Pleasant, young thin white male, smiling, speaking in full sentences, in no sign of pain or resp distress, no one is with him VITALS: reviewed, see vital signs table. HEAD: no_swelling\tenderness on the head. normocephalic. atraumatic. no benton signs. no raccoon eyes. EYES: PERRL, EOMI, conjunctiva_clear. no photophobia. NOSE: no_nasal_discharge. MOUTH: (-)decreased moisture. THROAT: no_tonsilar_inflammation/hypertrophy/exudate, no_airway_obstruction. NECK: supple, no_neck_tenderness, full rom. full strength. no meningeal signs. no signs of central cord syndrome. BACK: no_back_tenderness. CHEST_WALL: no_chest_tenderness. LUNGS: no_wheezing, ctab (-)accessory muscle use, good air exchange bilateral. HEART: normal_rate, normal_rhythm EXTREMITIES: strength 5/5 in all extremities, patient without fibular head tenderness. Patient without any pain to palpation over the hip, motor strength and nerve sensation intact. Patient with no pain over the navicular bone. There is no pain over the base of the fifth metatarsal. Patient with normal vascular examination with brisk capillary refill and +2 dorsalis pedis pulse. left foot: There was mild ecchymosis and mild edema noted over the lateral malleolus. There is no tenderness over the medial malleolus. There is no tenderness over the distal 3 cm of the tibia and fibula. Patient normal sensation in all aspects of the foot and ankle. There is no skin disruption that would require tetanus. Patient with +5 motor strength with plantar/dorsiflexion of the ankle. Range of motion was limited only secondary to pain in the extremities. no shortening or rotation of the limbs unless otherwise noted. good hand project development leader. brisk cap refill. good pulses. full rom and full strength in all other extremities unless otherwise noted. slight antalgic gait secondary only to pain. no foot drop. neg daisy sign. neg barba squeeze. SKIN: warm, dry, good_color, no_rash. no other grossly visible overlying skin changes or other signs of trauma unless noted. NEURO: cerebellar function intact, reflexes wnl, cranial nerves 2 - 12 intact, motor_intact, sensory_intact. - INFECTION CONTROL TRAVEL OUTSIDE OF THE [place] IN LAST 30 DAYS: No Course - Re-evaluation Re-evalutation: pt here for left ankle pain after twisting it ship captain. left ankle xr neg per rad and reviewed by myself. pt informed of findings. he was placed in an petrona wrap, air cast, and given crutches. advised nonweightbearing for the next few days then weightbearing as tolerated or until seen by pcp/ortho. he is on multiple psych meds so advised tylenol only prn any pain. rice therapy. advised sx care. advised to f/u with pcp/ortho in 1-2 days. return for any worsening symptoms. vss. well appearing. satting well on ra. neurononfocal. pt understands and agrees to plan. On reexam, pt improved with tx listed. remained stable. nontoxic. well appearing. pain controlled. he didn't want anything here for pain. tolerating po. requesting to go home. Documentation achieved through voice recording which my lead to some occasional accidental typographical errors. Extensive efforts have been made to proof read documentation to make sure these are the least as possible. Category Date Time Status Splint [Immobilize Extrem/Crutch (ED)] NOW Care 07/08/19 22:51 Active ANKLE LEFT AP/LATERAL [RAD] Stat Exams 07/08/19 Completed - Vital Signs Vital signs: Temp Pulse Resp BP Pulse Ox 98.6 F 85 16 140/81 H 98 07/08/19 21:18 07/08/19 21:18 07/08/19 21:18 07/08/19 21:18 07/08/19 21:18 Temp Pulse Resp BP Pulse Ox 07/08/19 21:18 98.6 F 85 16 140/81 H 98 - Diagnostic Test Radiology reviewed: Image reviewed, Reports reviewed Radiology results interpreted by me: Ankle X-Ray 07/08/19 00:00 IMPRESSION: No definite acute osseous anomaly. copyright 2010 [employer]- All Rights Reserved Discharge - Discharge Clinical Impression: Left ankle sprain Qualifiers: Encounter type: initial encounter Involved ligament of ankle: other ligament Qualified Code(s): S93.492A - Sprain of other ligament of left ankle, initial encounter Condition: Good Disposition: HOME, SELF-CARE Instructions: Ankle Stirrup Splint ([facility]), Sprained Ankle ([facility]) Additional Instructions: Follow-up with PCP/ortho in 1 to 2 days. Return for any worsening symptoms. Ice/elevate/rest area. Tylenol for any pain. Nonweightbearing for the next few days and then weightbearing as tolerated or until cleared by pcp/ortho.
== END 2019-07-08 23:00 | disposition home or self-care (01) ==
LOC: ER 21:14
DX: S93.402A Sprain of unspecified ligament of left ankle, initial encounter (principal); M25.572 Pain in left ankle and joints of left foot; X50.0XXA Overexertion from strenuous movement or load, initial encounter; Y93.01 Activity, walking, marching and hiking; F17.200 Nicotine dependence, unspecified, uncomplicated
CPT/HCPCS: 99283; 73600; L1902

== ENCOUNTER 2020-10-20 22:07 | Emergency (ER) | payer SELFPAY ==
[2020-10-20 22:50] VITALS: BP 162/96
== END 2020-10-21 00:40 | disposition left against medical advice (07) ==
LOC: ER 22:07
DX: Z53.21 Procedure and treatment not carried out due to patient leaving prior to being seen by health care provider (principal)